=== PATIENT | female | born 1980 | race African-American/Black ===

== ENCOUNTER 2018-08-29 19:57 | Emergency (ER) | payer OTHER ==
[~2018-08-29] VITALS: Ht 175.3 cm; Wt 98.0 kg
[2018-08-29 20:04] VITALS: BP 147/75; PULSE 91; RESP 18; Ht 175.3 cm; Wt 98.0 kg
--- NOTE | 2018-08-29 21:09 | ERD ---
ER Documentation Chief Complaint Chief Complaint cp x 10 days, 22 weeks , cleared by ob HPI 38-year-old female who is 22 weeks and was cleared by OB is here for chest discomfort for the past 10 days. She states she has no chest pain but describes it as an intermittent "flickering" in her left chest that lasts a co uple moments and then resolves on its own. This is been going on every day for the last 10 days. No shortness of breath or palpitations. ROS All systems reviewed and are negative except as per history of present illness. Medications Home Meds No Active Prescriptions or Reported Meds Allergies Allergies: Coded Allergies: Penicillins (Verified Allergy, Mild, RASH, 12/24/12) Uncoded Allergies: PCN (Allergy, Mild, rash, 04/17/12) PMhx/Soc Medical and Surgical Hx: pt denies Medical Hx, pt denies Surgical Hx History of Surgery: No Anesthesia Reaction: No Hx Neurological Disorder: No Hx Respiratory Disorders: No Hx Cardiac Disorders: No Hx Psychiatric Problems: No Hx Miscellaneous Medical Probl: Yes (RIGHT OVARIAN CYST) Hx Alcohol Use: No Hx Substance Use: No Hx Tobacco Use: No Smoking Status: Never smoker FmHx Family History: No diabetes Physical Exam Vitals Vital Signs Date Temp Pulse Resp B/P (MAP) Pulse Ox O2 O2 Flow FiO2 Time Delivery Rate 08/29/18 98.5 91 18 147/75 98 20:04 (99) Physical Exam INITIAL VITAL SIGNS: Reviewed by me GENERAL: Awake, alert and oriented x 4, well appearing, nontoxic, speaking in full sentences. No acute distress HEAD: Atraumatic NECK: Supple. No masses. Full range of motion. No meningismus. No midline tenderness. RESPIRATORY: Clear to auscultation bilaterally. Symmetric chest wall rise. No wheezing or rales. No accessory muscle use. CV: Regular rate and rhythm. No murmurs, rubs, or gallops. ABDOMEN: Soft, non-distended. Nontender. Negative [place]. Negative McBurneys point tenderness. No CVA tenderness bilaterally. No guarding. No rebound. Result Diagram: 08/29/182047 Results 24 hrs Laboratory Tests Test 08/29/18 20:48 White Blood Count 10.9 10^3/ul Red Blood Count 3.97 10^6/ul Hemoglobin 11.8 g/dl Hematocrit 36.1 % Mean Corpuscular Volume 90.9 fl Mean Corpuscular Hemoglobin 29.7 pg Mean Corpuscular Hemoglobin Concent 32.7 g/dl Red Cell Distribution Width 13.2 % Platelet Count 282 10^3/UL Mean Platelet Volume 9.2 fl Immature Granulocytes % 1.500 % Neutrophils % 71.1 % Lymphocytes % 18.3 % Monocytes % 7.6 % Eosinophils % 1.1 % Basophils % 0.4 % Nucleated Red Blood Cells % 0.0 /100WBC Immature Granulocytes # 0.160 10^3/ul Neutrophils # 7.7 10^3/ul Lymphocytes # 2.0 10^3/ul Monocytes # 0.8 10^3/ul Eosinophils # 0.1 10^3/ul Basophils # 0.0 10^3/ul Nucleated Red Blood Cells # 0.0 10^3/ul Procedures/MDM Patient is here for chest discomfort that she has had for 10 days. She was already cleared by OB. CBC and chemistry panel ordered however patient decided she wanted to leave before results were given to her. She did not wish to sign the AMA form and just left. Departure Diagnosis: Primary Impression: Chest discomfort Condition: Stable DAYAMI MAURER PA-C Aug 29, 2018 21:09
== END 2018-08-29 21:23 | disposition left against medical advice (07) ==
LOC: FTE 19:57
DX: O99.89 Other specified diseases and conditions complicating pregnancy, childbirth and the puerperium (principal); R07.89 Other chest pain; Z3A.22 22 weeks gestation of pregnancy
CPT/HCPCS: 80053; 85025; 93005; Z7502

== ENCOUNTER 2018-09-15 13:32 | Inpatient (IN) | payer OTHER ==
[~2018-09-15] VITALS: Ht 175.3 cm; Wt 101.5 kg
[2018-09-15 13:53] VITALS: BP 144/85; PULSE 118; RESP 18; Ht 175.3 cm; Wt 101.5 kg
[2018-09-15] MEDS ORDERED: PREN1TAB71 PO (13:56)
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
[2018-09-15] MEDS ORDERED: ONDANSETRON 4 MG INJ IV PRN (15:00)
[2018-09-15] MEDS: LACTATED RINGER'S 1,000 ML IV SCH ×2 (15:03→22:19)
[2018-09-15] MEDS: ACETAMINOPHEN 325 MG TAB PO PRN ×2 (15:05→22:19)
[2018-09-16] MEDS ORDERED: PRENATAL VITAMIN PO SCH ×2 (09:00)
== END 2018-09-16 05:32 | disposition home or self-care (01) | DRG 833 ==
LOC: OBT 13:32 → L-D 13:32 → OBT 14:17 → L-D 14:54
PROVIDERS: ADMIT Obstetrics & Gynecology; ATTEND Obstetrics & Gynecology
DX: O26.892 Other specified pregnancy related conditions, second trimester (principal); Z3A.24 24 weeks gestation of pregnancy; R10.9 Unspecified abdominal pain
CPT/HCPCS: 76815; 76817; 80053; 81001; 82731; 84560; 85025; 85460; 85610; 85730; 86850; 86900; 86901; G0463; J7120

== ENCOUNTER 2018-10-02 14:46 | Outpatient (CLI) | payer OTHER ==
[~2018-10-02] VITALS: Ht 175.3 cm; Wt 102.0 kg
[~2018-10-02 14:46] MED LIST: PREN1TAB71 PO
[2018-10-02 14:55] VITALS: BP 141/87; PULSE 83; Ht 175.3 cm; Wt 102.0 kg
[2018-10-02] MEDS ORDERED: ACETAMINOPHEN 500 MG TAB PO STA (15:47)
[2018-10-02] MEDS ORDERED: AL HYDROX/MG HYDROX/SIMETH 30 ML CUP PO ONE (16:00)
[2018-10-02] MEDS ORDERED: FAMOTIDINE 20 MG TAB PO ONE (16:00)
--- NOTE | 2018-10-03 05:52 | TRIAGE ---
OB Triage Datetime Report Generated by CPN: 10/03/2018 05:51 Datetime: 10/02/2018 19:21 Stage of : OB Triage Datetime: 10/02/2018 18:59 Labor Evaluation Frequency: X1 Monitor Mode: External Duration (sec)2399: 60 Quality: Mild Pattern: Normal: <= 5 Contractions in 10 Minutes Resting Tone [place]: Relaxed Heart Rate FHR Baseline Rate: 135 Monitor Mode: External US Variability: Moderate 6-25 bpm Accelerations: 10X10 Decelerations: None Category: Category I Datetime: 10/02/2018 17:41 Monitor Mode: Palpation Pattern: Normal: <= 5 Contractions in 10 Minutes Resting Tone [place]: Relaxed Contraction Comments: no uc Heart Rate FHR Baseline Rate: 140 Monitor Mode: External US Variability: Moderate 6-25 bpm Decelerations: None Category: Category I Datetime: 10/02/2018 17:01 Duration (sec)2399: 20-30 Pattern: Normal: <= 5 Contractions in 10 Minutes Resting Tone [place]: Relaxed Contraction Comments: irritability Heart Rate FHR Baseline Rate: 145 Monitor Mode: External US Variability: Moderate 6-25 bpm Category: Category I Datetime: 10/02/2018 15:52 Duration (sec)2399: 20-30 Pattern: Normal: <= 5 Contractions in 10 Minutes Resting Tone [place]: Relaxed Contraction Comments: irritability Heart Rate FHR Baseline Rate: 145 Monitor Mode: External US Variability: Moderate 6-25 bpm Decelerations: None Category: Category I Datetime: 10/02/2018 15:23 EGA: 27.2 Datetime: 10/02/2018 14:58 Assessment Type: Triage Time of Arrival: 10/02/2018 14:43 EGA: 27.2 Arrived By: Ambulatory Arrived From: Home Chief Complaint: C/O decreased FM for 2 days, also c/o heartburn, deny epigastric pain, deny visual disturbance Movement: Decreased Contractions: Denies/Absent Rupture of Membranes: Denies Vaginal Bleeding: None Vaginal Discharge: Denies Recent Sexual Intercouse: Denies Abdominal Trauma: Not Applicable Patient Complaints: Other Time Provider Notified: 10/02/2018 15:38 Provider Notified: Initial Plan: nst, bpp Maternal Assessment Level of Consciousness: Fully Conscious DTR's/Clonus: DTRs 2+; No Clonus Headache: Denies Blurred Vision: No Respiratory Effort: Unlabored; Regular Rhythm; Equal Expansion Breath Sounds, Left: Clear and Equal Breath Sounds, Right: Clear and Equal Nausea/Vomiting: Denies RUQ Epigastric Pain: Denies Lower Extremities Edema: None Degree: None Upper Extremities Edema: None Degree: None Facial Edema: None Fall Risk Assessment History of Falling: (0) No Secondary Diagnosis: (0) No Ambulatory Aid: (0) Bedrest/Nurse Assist IV Therapy: (0) No Gait: (0) Normal/Bedrest/Immobile Mental Status: (0) Oriented to Own Ability Fall Score: 0 Fall Risk Score Definition: No Risk: No action required Datetime: 10/02/2018 14:49 Stage of : OB Triage Datetime: 09/16/2018 05:39 Stage of : Antepartum Datetime: 09/16/2018 05:25 Stage of : Antepartum Datetime: 09/16/2018 05:20 Stage of : Antepartum Datetime: 09/16/2018 05:10 Stage of : Antepartum Datetime: 09/16/2018 03:34 Stage of : Antepartum Maternal Assessment Level of Consciousness: Fully Conscious Labor Evaluation Frequency: none Monitor Mode: External Resting Tone [place]: Relaxed Heart Rate FHR Baseline Rate: 150 Monitor Mode: External US FHR Baseline Changes: No Baseline Change Variability: Moderate 6-25 bpm Accelerations: 10X10 Decelerations: Variable Pain Assessment Pain Scale: 1 Pain Presence: Intermittent Pain Type: Dull Pain Location: Back Pain Goal: 0 Pain Relief Measures: Pain Medication Given; Comfort Measures Datetime: 09/16/2018 02:34 Stage of : Antepartum Maternal Assessment Level of Consciousness: Fully Conscious Labor Evaluation Frequency: none Monitor Mode: External Resting Tone [place]: Relaxed Heart Rate FHR Baseline Rate: 150 Monitor Mode: External US FHR Baseline Changes: No Baseline Change Variability: Moderate 6-25 bpm Accelerations: 10X10 Decelerations: Variable Pain Assessment Pain Scale: 1 Pain Presence: Intermittent Pain Type: Dull Pain Location: Back Pain Goal: 0 Pain Relief Measures: Pain Medication Given; Comfort Measures Datetime: 09/16/2018 01:36 Stage of : Antepartum Maternal Assessment Level of Consciousness: Fully Conscious Labor Evaluation Frequency: none Monitor Mode: External Resting Tone [place]: Relaxed Heart Rate FHR Baseline Rate: 150 Monitor Mode: External US FHR Baseline Changes: No Baseline Change Variability: Moderate 6-25 bpm Accelerations: 10X10 Decelerations: Variable Pain Assessment Pain Scale: 1 Pain Presence: Intermittent Pain Type: Dull Pain Location: Back Pain Goal: 0 Pain Relief Measures: Pain Medication Given; Comfort Measures Datetime: 09/16/2018 00:34 Stage of : Antepartum Maternal Assessment Level of Consciousness: Fully Conscious Labor Evaluation Frequency: none Monitor Mode: External Resting Tone [place]: Relaxed Heart Rate FHR Baseline Rate: 150 Monitor Mode: External US FHR Baseline Changes: No Baseline Change Variability: Moderate 6-25 bpm Accelerations: 10X10 Decelerations: Variable Pain Assessment Pain Scale: 1 Pain Presence: Intermittent Pain Type: Dull Pain Location: Back Pain Goal: 0 Pain Relief Measures: Pain Medication Given; Comfort Measures Datetime: 09/15/2018 23:34 Stage of : Antepartum Temperature Route: Oral Labor Evaluation Frequency: none Monitor Mode: External Resting Tone [place]: Relaxed Heart Rate FHR Baseline Rate: 150 Monitor Mode: External US FHR Baseline Changes: No Baseline Change Variability: Moderate 6-25 bpm Accelerations: 10X10 Decelerations: Variable Pain Assessment Pain Scale: 2 Pain Presence: Intermittent Pain Type: Dull Pain Location: Back Pain Goal: 0 Pain Relief Measures: Pain Medication Given; Comfort Measures Datetime: 09/15/2018 23:13 Stage of : Antepartum Temperature Route: Oral Labor Evaluation Frequency: none Monitor Mode: External Resting Tone [place]: Relaxed Heart Rate FHR Baseline Rate: 150 Monitor Mode: External US FHR Baseline Changes: No Baseline Change Variability: Moderate 6-25 bpm Accelerations: 10X10 Decelerations: Variable Pain Assessment Pain Scale: 5 Pain Presence: Constant Pain Type: Dull Pain Location: Back Pain Goal: 0 Pain Relief Measures: Comfort Measures Datetime: 09/15/2018 22:41 Stage of : Antepartum Datetime: 09/15/2018 22:19 Stage of : Antepartum Datetime: 09/15/2018 22:11 Stage of : Antepartum Temperature Route: Oral Labor Evaluation Frequency: none Monitor Mode: External Resting Tone [place]: Relaxed Heart Rate FHR Baseline Rate: 150 Monitor Mode: External US FHR Baseline Changes: No Baseline Change Variability: Moderate 6-25 bpm Accelerations: 10X10 Decelerations: Variable Pain Assessment Pain Scale: 5 Pain Presence: Constant Pain Type: Dull Pain Location: Back (Annotations: Low Back) Pain Goal: 0 Pain Relief Measures: Comfort Measures Pain Assessment Comments: Discussed with pt. her taking Tylenol for mild-mod. pain. Pt really want s to go home. She agreed to stay until AM to make sure baby is okay and she is not contractiong and in stable condition as Dr Nam discussed with pt. Datetime: 09/15/2018 21:41 Stage of : Antepartum Datetime: 09/15/2018 21:22 Vaginal Exam Membrane Status: Intact Datetime: 09/15/2018 21:11 Stage of : Antepartum Datetime: 09/15/2018 21:00 Stage of : Antepartum Labor Evaluation Frequency: none Monitor Mode: External Resting Tone [place]: Relaxed Heart Rate FHR Baseline Rate: 150 Monitor Mode: External US FHR Baseline Changes: No Baseline Change Variability: Moderate 6-25 bpm Accelerations: 10X10 Decelerations: Variable Datetime: 09/15/2018 20:41 Stage of : Antepartum Datetime: 09/15/2018 20:33 Stage of : Antepartum Assessment Type: Ongoing Assessment Maternal Assessment Level of Consciousness: Fully Conscious DTR's/Clonus: DTRs 2+ Headache: Denies; Occipital Blurred Vision: No Respiratory Effort: Unlabored; Regular Rhythm; Equal Expansion Breath Sounds, Left: Clear and Equal Breath Sounds, Right: Clear and Equal Nausea/Vomiting: Denies RUQ Epigastric Pain: Denies Facial Edema: None Fall Risk Assessment History of Falling: (0) No Secondary Diagnosis: (0) No Ambulatory Aid: (0) Bedrest/Nurse Assist IV Therapy: (0) No Gait: (0) Normal/Bedrest/Immobile Mental Status: (0) Oriented to Own Ability Fall Score: 0 Fall Risk Score Definition: No Risk: No action required Datetime: 09/15/2018 20:11 Stage of : Antepartum Temperature Route: Oral Pain Assessment Pain Scale: 0 Pain Presence: None/Denies Pain Goal: 0 Datetime: 09/15/2018 20:00 Stage of : Antepartum Labor Evaluation Frequency: none Monitor Mode: External Resting Tone [place]: Relaxed Heart Rate FHR Baseline Rate: 150 Monitor Mode: External US FHR Baseline Changes: No Baseline Change Variability: Moderate 6-25 bpm Accelerations: 10X10 Decelerations: None Datetime: 09/15/2018 19:56 Stage of : Antepartum Assessment Type: Ongoing Assessment Maternal Assessment Level of Consciousness: Fully Conscious DTR's/Clonus: DTRs 2+; No Clonus Headache: Denies Blurred Vision: No Respiratory Effort: Unlabored; Regular Rhythm; Equal Expansion Breath Sounds, Left: Clear and Equal Breath Sounds, Right: Clear and Equal Nausea/Vomiting: Denies RUQ Epigastric Pain: Denies Lower Extremities Edema: None Degree: None Upper Extremities Edema: None Degree: None Facial Edema: None Fall Risk Assessment History of Falling: (0) No Secondary Diagnosis: (0) No Ambulatory Aid: (0) Bedrest/Nurse Assist Gait: (0) Normal/Bedrest/Immobile Mental Status: (0) Oriented to Own Ability Datetime: 09/15/2018 19:51 Stage of : Antepartum Temperature Route: Oral Pain Assessment Pain Scale: 0 Pain Presence: None/Denies Pain Goal: 0 Datetime: 09/15/2018 19:41 Stage of : Antepartum Datetime: 09/15/2018 19:19 Stage of : Antepartum Datetime: 09/15/2018 18:41 Labor Evaluation Frequency: 0 Monitor Mode: External Heart Rate FHR Baseline Rate: 150 Monitor Mode: External US FHR Baseline Changes: No Baseline Change Variability: Moderate 6-25 bpm Accelerations: 10X10 Decelerations: None Category: Category I Pain Presence: None/Denies Datetime: 09/15/2018 16:57 Labor Evaluation Frequency: 0 Monitor Mode: External Heart Rate FHR Baseline Rate: 145 Monitor Mode: External US FHR Baseline Changes: No Baseline Change Variability: Moderate 6-25 bpm Accelerations: 15X15 Decelerations: None Category: Category I Pain Presence: None/Denies Datetime: 09/15/2018 15:05 Pain Presence: Intermittent Pain Type: Ache Pain Location: Back Pain Relief Measures: Pain Medication Given Datetime: 09/15/2018 14:40 Stage of : Antepartum Assessment Type: Admission Assessment Vaginal Bleeding: None Maternal Assessment Level of Consciousness: Fully Conscious DTR's/Clonus: DTRs 2+; No Clonus Headache: Denies Blurred Vision: No Respiratory Effort: Unlabored; Regular Rhythm; Equal Expansion Breath Sounds, Left: Clear and Equal Breath Sounds, Right: Clear and Equal Nausea/Vomiting: Denies RUQ Epigastric Pain: Denies Facial Edema: None Fall Risk Assessment History of Falling: (0) No Secondary Diagnosis: (0) No Ambulatory Aid: (0) Bedrest/Nurse Assist IV Therapy: (0) No Gait: (0) Normal/Bedrest/Immobile Mental Status: (0) Oriented to Own Ability Fall Score: 0 Fall Risk Score Definition: No Risk: No action required Pain Assessment Pain Scale: 6 Pain Presence: Intermittent Pain Type: Ache Pain Location: Back Datetime: 09/15/2018 14:38 Stage of : OB Triage Datetime: 09/15/2018 13:59 Fall Score: 0 Fall Risk Score Definition: No Risk: No action required Datetime: 09/15/2018 13:57 Stage of : OB Triage EGA: 24.6 Labor Evaluation Frequency: irreg Monitor Mode: Palpation Duration (sec)0099: 40-50 Quality: Mild Pattern: Normal: <= 5 Contractions in 10 Minutes Resting Tone [place]: Relaxed Contraction Comments: palpates soft Monitor Mode: External US Datetime: 08/29/2018 18:06 Fall Score: 0 Fall Risk Score Definition: No Risk: No action required Datetime: 08/29/2018 17:57 EGA: 22.3
== END 2018-10-02 19:28 | disposition home or self-care (01) ==
LOC: OBT 14:46 → L-D 14:48 → OBT 19:28
PROVIDERS: ATTEND Obstetrics & Gynecology
DX: O36.8120 Decreased fetal movements, second trimester, not applicable or unspecified (principal); O60.02 Preterm labor without delivery, second trimester; Z3A.27 27 weeks gestation of pregnancy
CPT/HCPCS: 76817; 76818; 80053; 81001; 84560; 85025; 85384; 85610; 85730; Z7500; Z7610; G0463

== ENCOUNTER 2018-10-09 02:50 | Outpatient (CLI) | payer OTHER ==
[~2018-10-09] VITALS: Ht 175.3 cm; Wt 103.0 kg
[2018-10-09 03:17] VITALS: BP 134/94; PULSE 100; RESP 18
[2018-10-09] MEDS ORDERED: CALC300T4 PO (03:19)
[2018-10-09] MEDS ORDERED: ACETAMINOPHEN 500 MG TAB PO ONE (04:49)
[2018-10-09] MEDS ORDERED: AL HYDROX/MG HYDROX/SIMETH 30 ML CUP PO ONE (05:00)
--- NOTE | 2018-10-09 07:41 | PREOPHP ---
DATE OF ADMISSION: 10/09/2018 HISTORY OF PRESENT ILLNESS: The patient is a 38-year-old 3, para 2, EDC 12/30/2018, intraute rine at 28 weeks and 2 days gestational age, presented to triage complaining of headaches, which mildly improved with Tylenol. The patient has a significant history of gestational hypertensio n and currently taking antihypertensive medications. Her care is taking place with Dr. Shantal wade. PAST MEDICAL HISTORY: Gestational hypertension. MEDICATIONS: vitamins. PAST SURGICAL HISTORY: None. OBSTETRIC HISTORY: x2 vaginal deliveries. GYNECOLOGIC HISTORY: 12, regular 3 to 4 days. She denies any sexually transmitted disease. She is sexually active with 1 partner. SOCIAL HISTORY: She denies any smoking, drugs or alcohol. FAMILY HISTORY: None. REVIEW OF SYSTEMS: All within normal except history of present illness. PHYSICAL EXAMINATION: HEENT: Within normal. LUNGS: CTA bilateral. CARDIOVASCULAR: S1, S2, regular rhythm. ABDOMEN: Gravid, nontender. Negative CVA tenderness, no epigastric tenderness. EXTREMITIES: Negative edema. No calf tenderness. PELVIC: Vaginal exam deferred. heart tracing category 1. [place]: No contractions. VITAL SIGNS: Blood pressure 134/94, pulse 100, respirations 18, temperature 97.8. ASSESSMENT AND PLAN: Intrauterine at 28 weeks and 2 days gestational age with gestational hypertension, on medication. Recommended for admission to rule out preeclampsia. However, the patie nt currently declines admission and desires to follow up with Dr. Patrick in the morning. Risk of preeclampsia given to the patient. Strict preeclamptic precautions given to the patient. The patien t will leave against medical advice. Dictated By: ANNY REEVES MD ME/NTS Conf#: [id number] DID#: [id number] CC: ANYN REEVES MD;*EndCC*
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
== END 2018-10-09 07:13 | disposition left against medical advice (07) ==
LOC: L-D 02:50 → OBT 02:50
PROVIDERS: ATTEND Obstetrics & Gynecology
DX: O13.2 Gestational [pregnancy-induced] hypertension without significant proteinuria, second trimester (principal); O09.522 Supervision of elderly multigravida, second trimester; Z3A.28 28 weeks gestation of pregnancy; Z88.0 Allergy status to penicillin
CPT/HCPCS: 76818; 80053; 81001; 84560; 85025; 85610; 85730; Z7610; 36415; G0463

== ENCOUNTER 2018-10-16 18:08 | Outpatient (CLI) | payer OTHER ==
[~2018-10-16] VITALS: Ht 180.3 cm; Wt 102.9 kg
[~2018-10-16 18:08] MED LIST changes: +CALC300T4 PO
[2018-10-16 18:24] VITALS: Ht 180.3 cm; Wt 102.9 kg
[2018-10-16] MEDS ORDERED: ACETAMINOPHEN 500 MG TAB PO STA (20:18)
--- NOTE | 2018-10-16 23:48 | PN ---
Triage Information Date/Time 10/16/18 Reason for visit: DFM Weeks of Gestation 29w2d /Para Diabetes: none Hypertention: induced Additional information back pain for few days Objective normotensive Heart Rate: 150's Heart Rate Comments CAT I Contractions: None Exam CVA neg for tenderness Results/Medications Results 24 hrs Laboratory Tests Test 10/16/18 19:20 Urine Color YELLOW Urine Clarity SLIGHTLY CLOUDY A Urine pH 6.0 Urine Specific [place] 1.025 Urine Ketones TRACE A Urine Nitrite NEGATIVE Urine Bilirubin NEGATIVE Urine Urobilinogen 1+ H Urine Leukocyte Esterase 2+ H Urine Microscopic RBC 4 Urine Microscopic WBC 4 Urine Squamous Epithelial Cells FEW Urine Bacteria FEW A Urine Hemoglobin NEGATIVE Urine Glucose NEGATIVE Urine Total Protein NEGATIVE Medications tylenol 1000mg Imaging Results BPP 02/26 EDGAR 21.1 EFW 1846gm Disposition: Discharge Assessment/Plan A IUp 29w2d DFM GHTN back pain resolved P discharge home f/u at her OB ANSHU JIMENEZ MD Oct 16, 2018 23:48
== END 2018-10-16 21:45 | disposition home or self-care (01) ==
LOC: OBT 18:08 → L-D 18:09 → OBT 21:45
PROVIDERS: ATTEND Obstetrics & Gynecology
DX: O36.8130 Decreased fetal movements, third trimester, not applicable or unspecified (principal); Z3A.29 29 weeks gestation of pregnancy
CPT/HCPCS: 76815; 76818; 81001; 87086; Z7610; G0463

== ENCOUNTER 2018-10-29 13:54 | Outpatient (CLI) | payer OTHER ==
[~2018-10-29] VITALS: Ht 175.3 cm; Wt 101.9 kg
[2018-10-29 14:49] VITALS: Ht 175.3 cm; Wt 101.9 kg
[2018-10-29 14:52] VITALS: BP 126/78; PULSE 94; RESP 20
[2018-10-29] MEDS ORDERED: LIDOCAINE/MYLANTA 40 ML BTL PO ONE (16:00)
[2018-10-29] MEDS ORDERED: ACETAMINOPHEN 325 MG TAB PO PRN (16:00)
--- NOTE | 2018-11-12 22:24 | QN ---
Documentation Comment Late entry note. Patient seen on 10/29/2017 38 years old -0-1-2 [facility] later uterine at 31 weeks and 1 day gestational diabetes A1 and gestational hypertension presents for antepartum testing. She states good movement. She denies nausea, vomiting, shortness of breath, chest pain, headache, visual changes, vaginal bleeding or LOF. -FHR: No sign of metabolic acidosis- Category I -Contractions: None -Ultrasound performed: Normal EDGAR, BPP 8 out of 8 -Symptoms and sign of labor, preeclampsia, kick count discussed with patient, she voiced understanding. All of her questions answered. -Patient was discharged home in stable condition with the appropriate discharge instructions provided. I would like patient to have close follow-up with her primary physician or outpatient clinic in 1-2 days or return to triage for worsening symptoms or any other urgent concerns. OTTONIEL RICHTER Nov 12, 2018 22:24
== END 2018-10-29 17:40 | disposition home or self-care (01) ==
LOC: L-D 13:54 → OBT 13:54 → L-D 14:04 → OBT 17:40
PROVIDERS: ATTEND Obstetrics & Gynecology
DX: O24.419 Gestational diabetes mellitus in pregnancy, unspecified control (principal); O13.3 Gestational [pregnancy-induced] hypertension without significant proteinuria, third trimester; O09.523 Supervision of elderly multigravida, third trimester; Z3A.31 31 weeks gestation of pregnancy
CPT/HCPCS: 76818; 80053; 81001; 84560; 85025; 85384; 85610; 85730; Z7500; Z7610; G0463

== ENCOUNTER 2018-11-07 13:33 | Outpatient (CLI) | payer OTHER ==
[~2018-11-07] VITALS: Ht 175.3 cm; Wt 101.7 kg
[2018-11-07 13:51] VITALS: BP 130/77; PULSE 100; Ht 175.3 cm; Wt 101.7 kg
[2018-11-07] MEDS ORDERED: LABE100T7 PO (13:53)
[2018-11-07] MEDS ORDERED: CEPH500C PO (13:54)
--- NOTE | 2018-11-10 00:28 | PN ---
Triage Information Date/Time late entry for service rendered on 11/07/18 Reason for visit: NST and EDGAR Weeks of Gestation 32w3d /Para A1 Diabetes: gestational Hypertention: none, induced Additional information A2DM Objective Vital Signs Date Temp Pulse Resp B/P (MAP) Pulse Ox O2 O2 Flow FiO2 Time Delivery Rate 11/07/18 97.7 100 130/77 13:51 (94) Heart Rate: 150's Heart Rate Comments CAT I tracing Contractions: None Results/Medications Imaging Results EDGAR 13.9 BPP Disposition: Discharge Assessment/Plan A IUP 32w3d GDM GHTN P biweekly antepartum test ANSHU JIMENEZ MD Nov 10, 2018 00:28
== END 2018-11-07 15:00 | disposition home or self-care (01) ==
LOC: OBT 13:33 → L-D 13:33 → OBT 15:00
PROVIDERS: ATTEND Obstetrics & Gynecology
DX: O24.419 Gestational diabetes mellitus in pregnancy, unspecified control (principal); O13.3 Gestational [pregnancy-induced] hypertension without significant proteinuria, third trimester; O09.523 Supervision of elderly multigravida, third trimester; Z3A.32 32 weeks gestation of pregnancy
CPT/HCPCS: G0463

== ENCOUNTER 2018-12-17 21:47 | Outpatient (CLI) | payer OTHER ==
[~2018-12-17] VITALS: Ht 172.7 cm; Wt 102.1 kg
[~2018-12-17 21:47] MED LIST changes: +CEPH500C PO; +LABE100T7 PO
--- NOTE | 2018-12-17 22:16 | NSTRPT ---
NST Information Datetime Report Generated by CPN: 12/17/2018 22:15 Datetime: 12/12/2018 13:15 NST Information EGA: 37.3 Test Number: 11 Time on Monitor: 12/12/2018 13:32 Time off Monitor: 12/12/2018 13:54 NST Duration (Min): 22 Reason for NST: Diabetes Mellitus; Other Reason for NST Other: A2DM, Advanced Maternal Age Test and Monitor Explained: Monitor Explained; Test Explained; Verbalized Understanding Pulse: 91 Resp: 18 SBP: 122 DBP: 76 Test Evaluation NST Interventions: None Patient States Movement: Present Contraction Frequency: irritability/15-30/mild/pain level 0 FHR Baseline : 135 Variability: Moderate 6-25bpm Accelerations: 15X15 Decelerations: None FHR Category: Category I NST Results: Reactive Comments: pt to u/s britney 15.7 cm cephalic FBS 95 Electronically Signed By E-Signature: with User ID: [id number] Datetime: 12/09/2018 13:04 NST Information EGA: 37.0 NST Duration (Min): 25 Datetime: 12/05/2018 13:15 NST Information EGA: 36.3 NST Duration (Min): 28 Datetime: 12/02/2018 13:05 NST Information EGA: 36.0 NST Duration (Min): 31 Datetime: 11/25/2018 10:20 NST Information EGA: 35.0 NST Duration (Min): 25 Datetime: 11/21/2018 13:23 NST Information EGA: 34.3 NST Duration (Min): 29 Datetime: 11/18/2018 13:06 NST Information EGA: 34.0 NST Duration (Min): 20 Datetime: 11/14/2018 14:00 NST Information EGA: 33.3 NST Duration (Min): 31 Datetime: 11/11/2018 11:50 NST Information EGA: 33.0 NST Duration (Min): 29 Datetime: 11/07/2018 10:31 NST Information EGA: 32.3 NST Duration (Min): 51 Datetime: 11/04/2018 10:57 NST Information EGA: 32.0 NST Duration (Min): 28
[2018-12-17 22:18] VITALS: Ht 172.7 cm; Wt 102.1 kg
[2018-12-17 22:19] VITALS: BP 134/84; PULSE 106; RESP 17
[2018-12-18] MEDS ORDERED: FAMOTIDINE 20 MG TAB PO ONE (00:30)
[2018-12-18] MEDS ORDERED: MAGNESIUM HYDROXIDE 30ML CUP PO ONE (00:30)
--- NOTE | 2018-12-18 07:00 | HP ---
Date/Time of Note Date/Time of Note DATE: 12/18/18 TIME: 06:54 OB - History Hx of Present Free Text/Dictation Late entry note for exam done for December 17, 2018 : 5 Para: 2 Other Concerns: 38-year-old G5, P2 with IUP at 38 weeks and 1 day with care with Dr. Patrick presented with complaint of constant back pain 4 out of 10. Patient's records were not available. Per patient had a history of chronic hypertension and GDM. She is currently on labetalol 100 mg p.o. twice daily as well as metformin 500 mg p.o. twice daily. Patient reports has been followed up by perinatology clinic in [place]. No records are available. Patient reports she was told she is a candidate for induction and was told by her clinic that she will be scheduled for induction in 2 days. Patient denies any headache, blurred vision, epigastric pain or right upper quadrant pain. She denies any leaking of fluid, vaginal bleeding or decreased movement. She was noted to be 2 cm dilated/50% effaced -2 intact. Contractions were irregular. Blood pressures in the range of 130s over 80s. Past Family/Social History * Past Medical, Surgical, Family and Obstetric Histories reviewed from chart. OB Admission Exam Vital Signs Vital Signs Vital Signs Date Temp Pulse Resp B/P (MAP) Pulse Ox O2 O2 Flow FiO2 Time Delivery Rate 12/17/18 98.0 106 17 134/84 Room Air 22:19 (101) Physical Exam HEENT: WNL Heart: Rhythm Normal Lungs: Clear Abdomen: WNL Extremities: Normal Cervical Dilatation: 2cm Effacement: 50% Station: -2 Membranes: Intact Heart Rate: 120's Accelerations: Accelerations Present Decelerations: Variable Decelerations Varibility: Moderate Contractions on Admission: 6-10 Minutes Apart Intensity: Mild Last 72 hourBlood Glucose ROCEDURE: US biophysical profile. CLINICAL INDICATION: Pain. well-being. TECHNIQUE: Multiple sonographic images of the uterus were obtained. The images were reviewed on a PACS workstation. COMPARISON: US PELVIS 10/29/2018 FINDINGS: There is a single live intrauterine gestation. heart rate is 139 beats per minute. The position is cephalic. The placenta is anterior, grade 1. The EDGAR is 12.7 cm. Breathing Movement: 2 Gross Body Movement: 2 Tone: 2 Qualitative Amniotic Fluid Volume: 2 TOTAL: 8 IMPRESSION: 1. Single viable intrauterine gestation. 2. Biophysical profile = 8/8. 3. EDGAR = 12.7 cm. OB Assessment/Plan Other Assessment: IUP at 38 weeks and 1 day Low back pain. Cannot rule out early labor. Chronic hypertension, on labetalol 100 mg p.o. twice daily Currently no evidence of superimposed preeclampsia Blood pressure during monitoring while the patient was in triage within normal range in 130s over 80s. Patient is asymptomatic. GDM, A2 on metformin Patient was told the plan by perinatology clinic to be delivered and induced between 38 to 39 weeks I discussed with the patient admission to labor and delivery Plan to obtain all her records in a.m. when the clinic is open Attempted to contact [facility] for records. No records were available there Discussed with the patient after reviewing her records the plan would be likely to induction Patient declined admission and desires to sign AMA I strongly encouraged patient to be admitted to the hospital with above plan. I discussed with the patient risk of leaving against AMA including risk of complications of not limited to mom as well as to the baby and risk of significant remarkable for outcome including but not limited to versus versus maternal longer short term morbidity or mortality Patient verbalized understanding. All questions were answered to patient with satisfaction. She decided to leave AMA despite of above counseling She was advised to return to the clinic next day. This discussion was done in presence of RN, JOSE MANUEL Dickson MD December 18, 2018 07:00
[2018-12-18] MEDS ORDERED: METF-849 PO (11:41)
== END 2018-12-18 01:27 | disposition left against medical advice (07) ==
LOC: OBT 21:47 → L-D 21:48 → OBT 12-18 01:27
PROVIDERS: ATTEND Obstetrics & Gynecology
DX: O26.893 Other specified pregnancy related conditions, third trimester (principal); M54.5 Low back pain; O16.3 Unspecified maternal hypertension, third trimester; O24.415 Gestational diabetes mellitus in pregnancy, controlled by oral hypoglycemic drugs; O09.523 Supervision of elderly multigravida, third trimester; Z3A.38 38 weeks gestation of pregnancy
CPT/HCPCS: 76818; 81001; Z7500; Z7610; G0463

== ENCOUNTER 2018-12-18 11:30 | Inpatient (IN) | payer OTHER ==
[~2018-12-18] VITALS: Ht 172.7 cm; Wt 101.6 kg
[2018-12-18 11:37] VITALS: BMI 34.0
[2018-12-18 11:38] VITALS: BP 127/82; PULSE 108; RESP 18
[2018-12-18] MEDS ORDERED: METF-849 PO (11:41)
--- NOTE | 2018-12-18 15:49 | HP ---
Date/Time of Note Date/Time of Note DATE: 12/18/18 TIME: 15:38 OB - History Hx of Present Free Text/Dictation Patient today presented with complaint of decreased movement since last night when she signed AMA and left the hospital. Estimated Due Date: Dec 30, 2018 : 5 Para: 3 Care: Limited Care Other Concerns: 38-year-old G5, P3 with IUP at 38 weeks and 2 days with care with Dr. Hiram Patrick and history of hypertension currently on labetalol 100 mg p.o. twice daily as well as gestational diabetes on medication presented here to the hospital today after she left AMA last night. Patient presented with complaint of decreased movement since last night. She reports baby was not moving much since last night that is significantly decreased. Antepartum course was complicated by hypertension currently on labetalol 100 mg p.o. twice daily as well as gestational diabetes on meds. records obtained from clinic as well as from [facility] where she had her OB ultrasound for growth scan yesterday. Patient noted to have increased AC more than 97 percentile. It was recommended by perinatologist to deliver between 38 to 39 weeks. Patient was seen last night in triage. Records were not available at that time. She was encouraged to stay in the hospital on 2 morning to obtain the records however she signed AMA. Now today she presents with decreased movement. labs obtained and reviewed. GBS negative. Patient denies any headache, blurred vision, epigastric pain or right upper quadrant pain. She denies any leaking of fluid, vaginal bleeding. Past Family/Social History * Past Medical, Surgical, Family and Obstetric Histories reviewed from chart. Blood Type: O+ Rubella: immune RPR/VDRL: Negative GBS Status: Positive HBsAG: Negative OB Admission Exam Vital Signs Vital Signs Vital Signs Date Temp Pulse Resp B/P (MAP) Pulse Ox O2 O2 Flow FiO2 Time Delivery Rate 12/18/18 98.6 108 18 127/82 Room Air 11:38 (97) Physical Exam HEENT: WNL Lungs: Clear Abdomen: WNL Extremities: Normal Reflexes: Normal Cervical Dilatation: 1cm Effacement: 50% Station: -3 Membranes: Intact Amniotic Fluid: Clear Heart Rate: 130's Accelerations: Accelerations Present Decelerations: No Decelerations Varibility: Moderate Contractions on Admission: >10 Minutes Apart Intensity: Mild OB Assessment/Plan Other Assessment: BP at 38 weeks and 2 days PIH, well controlled with meds GDM, A2. on metformin Decreased movement. Increased AC more than 97 percentile Recommended by perinatologist delivery between 38 to 39 weeks Patient presented with decreased movement. I discussed with the patient and induction. Induction modes and pros and cons and risk and benefit discussed with patient in detail Induction with Cytotec discussed with the patient. All questions were answered to patient with satisfaction. Patient verbalized understanding and agreed to proceed I also discussed the patient risk of shoulder dystocia due to increased AC Increased risk of additional maneuver to deliver the babies shoulder in case of shoulder dystocia as well as risk of long or short-term complications including musculoskeletal or neural damage to the fetus in case of shoulder dystocia discussed with patient Patient verbalized understanding. All questions were answered. Proceed with estimated weight prior to start induction GBS positive. History of hives with penicillin. No anaphylaxis No sensitivity available Will start on cefazolin 2 g IV slow injection. If no reaction continue with also cefazolin 1 g every 8 hours JOSE MANUEL ESPINOZA MD December 18, 2018 15:48
[2018-12-18 15:55] VITALS: Ht 172.7 cm; Wt 101.6 kg
[2018-12-18] MEDS ORDERED: OXYTOCIN 30 UNITS/LR 500 ML IV SCH ×2 (16:00)
[2018-12-18] MEDS ORDERED: BUTORPHANOL 2 MG INJ IV PRN ×2 (16:00)
[2018-12-18] MEDS ORDERED: OXYTOCIN 30 UNITS/LR 500 ML IV PRN (16:00)
[2018-12-18] MEDS ORDERED: IBUPROFEN 600 MG TAB PO PRN (16:00)
[2018-12-18] MEDS ORDERED: METHYLERGONOVINE 0.2 MG INJ IM PRN (16:00)
[2018-12-18] MEDS ORDERED: LIDOCAINE 1% (MPF) 30 ML INJ INJ PRN (16:00)
[2018-12-18] MEDS ORDERED: CEFAZOLIN 2 GM/50 ML (PMX) 50 ML IVPB ONE (16:00)
[2018-12-18] MEDS ORDERED: MISOPROSTOL 200 MCG TAB PR PRN (16:00)
[2018-12-18] MEDS ORDERED: CARBOPROST 250 MCG INJ IM PRN (16:00)
[2018-12-18] MEDS: MISOPROSTOL 50 MCG CAPSULE PO SCH ×2 (18:02→22:18)
[2018-12-18] MEDS: LACTATED RINGER'S 1,000 ML IV SCH (18:23)
[2018-12-18] MEDS ORDERED: LABETALOL 100 MG TAB PO SCH (20:30)
[2018-12-18] MEDS: LABETALOL 100 MG TAB PO SCH (20:44)
[2018-12-18] MEDS ORDERED: MAGNESIUM HYDROXIDE 30ML CUP PO SCH (23:00)
[2018-12-19] MEDS ORDERED: CEFAZOLIN 1 GM/50 ML (PMX) 50 ML IVPB SCH
[2018-12-19] MEDS: MISOPROSTOL 50 MCG CAPSULE PO SCH ×3 (02:25→09:00)
[2018-12-19] MEDS ORDERED: CEFAZOLIN 2 GM/50 ML (PMX) 50 ML IVPB ONE (07:33)
[2018-12-19] MEDS: LACTATED RINGER'S 1,000 ML IV SCH ×4 (07:41→14:21)
[2018-12-19] MEDS: LABETALOL 100 MG TAB PO SCH ×2 (08:18→20:47)
[2018-12-19] MEDS ORDERED: FENTAnyl 2MCG/ML-ROPIV 0.2% 100 ML ONE (10:41)
--- NOTE | 2018-12-19 11:03 | PREAC ---
Date/Time of Note Date/Time of Note DATE: 12/19/18 TIME: 11:01 Anesthesia Eval and Record Evaluation Time Pre-Procedure Interview DATE: 12/19/18 TIME: 11:01 Age 38 Sex female NPO: 8 hrs Preoperative diagnosis Labor Pain Planned procedure Labor Epidural Past Medical History Past Medical History: Includes Heme: Anemia : : (5), Para: (2), Gestational age: (38) Surgery & Anesthesia Issues No known issue Meds Anticoagulation: No Beta Michelle within 24 hr: No Reason Beta Michelle not given: Pt. not on B-Michelle Reported Medications Metformin* (Glucophage*) 500 Mg Tab, 500 MG PO WITH BREAKFAST, #30 TAB 12/18/18 Cephalexin* (Cephalexin*) 500 Mg Capsule, 500 MG PO Q6, #28 CAP 11/07/18 Labetalol Hcl* (Labetalol Hcl*) 100 Mg Tablet, 100 MG PO BID, TAB 11/07/18 Calcium Carbonate* (Tums X-Str) 300 Mg Tab.chew, 300 MG PO, TAB.CHEW 10/09/18 Vit No.130/Iron/FA ( Tablet) 1 Each Tablet, 1 EACH PO, TAB 09/15/18 Current Medications Lactated Ringer's 1,000 ml @ 125 mls/hr Q8H IV Last administered on 12/19/18at 07:58; Admin Dose 125 MLS/HR; Start 12/18/18 at 15:41 Butorphanol Tartrate (Stadol) 1 mg Q2H PRN IV .PAIN SCALE 1-5; Start 12/18/18 at 16:00 Butorphanol Tartrate (Stadol) 2 mg Q2H PRN IV .PAIN SCALE 6-10; Start 12/18/18 at 16:00 Lidocaine (Xylocaine 1% (Mpf)) 30 ml ONCE PRN INJ .EPISIOTOMY; Start 12/18/18 at 16:00 Oxytocin/Lactated Ringer's 500 ml @ 500 mls/hr ONCE POST IV ; Start 12/18/18 at 16:00 Oxytocin/Lactated Ringer's 500 ml @ 125 mls/hr POST IV ; Start 12/18/18 at 16:00 Ibuprofen (Motrin) 600 mg ONCE PRN PO .PAIN 1-5; Start 12/18/18 at 16:00 Oxytocin/Lactated Ringer's 500 ml @ 0 mls/hr ONCE PRN IV .VAGINAL BLEEDING; Start 12/18/18 at 16:00 Methylergonovine Maleate (Methergine) 0.2 mg ONCE PRN IM .VAGINAL BLEEDING; Start 12/18/18 at 16:00 Carboprost Tromethamine (Hemabate) 250 mcg ONCE PRN IM .VAGINAL BLEEDING; Start 12/18/18 at 16:00 Misoprostol (Cytotec) 1,000 mcg ONCE PRN ID .VAGINAL BLEEDING; Start 12/18/18 at 16:00 Misoprostol (Cytotec 50 Mcg Capsule) 50 mcg Q4 PO Last administered on 12/19/18at 02:25; Admin Dose 50 MCG; Start 12/18/18 at 17:00 Cefazolin Sodium 50 ml @ 100 mls/hr Q8 IVPB ; Start 12/19/18 at 00:00 Labetalol HCl (Normodyne) 50 mg BID PO Last administered on 12/19/18at 08:18; Admin Dose 50 MG; Start 12/18/18 at 20:30 Magnesium Hydroxide (Milk Of Mag) 30 ml BID PO Last administered on 12/18/18at 23:45; Admin Dose 30 ML; Start 12/18/18 at 23:00 Meds reviewed: Yes Allergies Coded Allergies: Penicillins (Verified Allergy, Mild, RASH, 10/16/18) Allergies Reviewed: Yes Labs/Studies Labs Reviewed: Reviewed by anesthesiologist Result Diagram: 12/18/18 1724 Laboratory Tests 12/18/18 17:24 Blood Bank Test 12/18/18 17:24 Antibody Screen NEGATIVE Blood Type O POSITIVE Rh Immune Globulin Candidate NO test: Positive Studies: ECG (n/a), CXR (n/a) Pre-procedure Exam Last vitals Vital Signs Date Temp Pulse Resp B/P (MAP) Pulse Ox O2 O2 Flow FiO2 Time Delivery Rate 12/18/18 98.6 108 18 127/82 Room Air 11:38 (97) Airway: Adequate mouth opening, Adequate thyromental dist Mallampati: Mallampati II Teeth: Normal Lung: Normal Heart: Normal ASA Physical Status ASA physical status: 2 Emergency: None Planned Anesthetic Neuraxial: Epidural Planned Pain Management Epidural Pre-operative Attestations Prior to commencing anesthesia and surgery, the patient was re-evaluated, there was verification of: *The patient's identity *The results of appropriate recent lab work and preoperative vital signs *The above evaluation not changing prior to induction *Anesthetic plan, risk benefits, alternative and complications discussed with patient/family; questions answered; patient/family understands, accepts and wishes to proceed. PATRICIO BURGOS MD December 19, 2018 11:03
--- NOTE | 2018-12-19 11:05 | PAC ---
Date/Time of Note Date/Time of Note DATE: 12/19/18 TIME: 11:04 Post-Anesthesia Notes Post-Anesthesia Note Last documented vital signs Vital Signs Date Temp Pulse Resp B/P (MAP) Pulse Ox O2 O2 Flow FiO2 Time Delivery Rate 12/19/18 98.6 108 18 127/82 97 Room Air 11:00 (97) Activity: WNL Respiratory function: WNL Cardiovascular function: WNL Mental status: Baseline Pain reasonably controlled: Yes Hydration appropriate: Yes Nausea/Vomiting absent: Yes PATRICIO BURGOS MD December 19, 2018 11:05
[2018-12-19] MEDS ORDERED: FENTAnyl 2MCG/ML-ROPIV 0.2% 100 ML BAG EPI SCH (11:30)
[2018-12-19] MEDS ORDERED: NALOXONE (0.4 MG/ML) INJ IV PRN (11:30)
[2018-12-19] MEDS ORDERED: LACTATED RINGER'S 1,000 ML IV PRN (11:35)
[2018-12-19] MEDS ORDERED: MINERAL OIL LIGHT 10 ML VIAL TOP ONE (14:00)
--- NOTE | 2018-12-19 19:41 | LDN ---
Date/Time of Note Date/Time of Note DATE: 12/19/18 TIME: 19:38 Delivery Summary of macrosomic male infant r/o uterine fibroid Weeks of Gestation 38w3d Placenta Delivered: Spontaneously, Intact & Complete Episiotomy: No Perineal laceration: 0 Anesthesia type: Epidural Estimated blood loss: 300 Sponge & Needle done & correct: Yes All needle counts correct: Yes Any foreign bodies felt in the: No Infant Delivery Information Sex Sex: male Apgars 1 Minute: 9 5 Minute: 9 Suctioning Nose & mouth suctioned at ginny: Yes Delee suction performed: Yes Umbilical Cord Umbilical cord with: 3 Vessels Cord presentations: no nuchal cord Cord Blood was obtained: Yes Mother & Baby Disposition Disposition Mom & Baby to Maternity; Good: Yes Mom transferred to: Other Baby to NICU: No () ANSHU JIMENEZ MD December 19, 2018 19:41
[2018-12-19 21:40] VITALS: BP 136/77; PULSE 97; RESP 20
[2018-12-19] MEDS ORDERED: WITCH HAZEL/GLYCERIN PAD PR PRN (22:30)
[2018-12-19] MEDS ORDERED: OXYCODONE/ASPIRIN (4.88/325) TAB PO PRN ×2 (22:30)
[2018-12-19] MEDS ORDERED: OXYTOCIN 30 UNITS/LR 500 ML IV PRN (22:30)
[2018-12-19] MEDS ORDERED: MISOPROSTOL 200 MCG TAB PR PRN (22:30)
[2018-12-19] MEDS ORDERED: CARBOPROST 250 MCG INJ IM PRN (22:30)
[2018-12-19] MEDS ORDERED: ZOLPIDEM 5 MG TAB PO PRN (22:30)
[2018-12-19] MEDS ORDERED: LANOLIN HPA 1 PKT TOP PRN (22:30)
[2018-12-19] MEDS ORDERED: BENZOCAINE 20% 56 ML SPRAY TOP PRN (22:30)
[2018-12-19] MEDS ORDERED: METHYLERGONOVINE 0.2 MG INJ IM PRN (22:30)
[2018-12-20 00:40] VITALS: BP 116/71; PULSE 82; RESP 18
[2018-12-20] MEDS: IBUPROFEN 600 MG TAB PO SCH ×4 (00:52→17:46)
[2018-12-20 04:30] VITALS: BP 118/71; PULSE 74; RESP 18
[2018-12-20] MEDS: SENNA/DOCUSATE NA (8.6MG/50MG) TAB PO SCH ×2 (08:27→21:36)
[2018-12-20 08:45] VITALS: BP 118/75; PULSE 72; RESP 18
--- NOTE | 2018-12-20 09:56 | QN ---
Documentation Comment PPD #1 s/p with GDM and HTN. Pt is OK, and tolerating a regular diet. Pt was told to keep taking her BP meds (Labetalol 50 BID) until her f/u appt with Dr Patrick but to stop her Metformin. The pt has had 2 episodes of chest pressure this AM at 6 AM and 8AM. It has resolved. Pt also reports a h/o GERD before and during the . Bleeding has diminished from last night. BP 118/75 O2 sat 99% T=98.2 Fundus firm. Lochia minimal. Ext NT, 1+ edema. WBC 10.9 Hgb 10.0 Plts 207K P: Discussed with pt her past history and her instructions re: post-delivery by her doctor. Pt instructed to not take her own supply of Labetalol but to let us give it to her. I will not give her the AM dose but will restart this PM. I don't think the BP is affecting chest pain but too low can be bad as well as too high. Pt understands. Pt will stay off the Metformin and will do a 2 hour GTT at a 6 week f/u. Will give pt Protonix while she is here to eliminate the possibility of acid reflux being responsible for her chest pain. Will get a 12 lead EKG. Pt understands the plan and all of her questions and concerns were answered. MAXIMO JACOME MD Dec 20, 2018 09:56
[2018-12-20] MEDS ORDERED: LABETALOL 100 MG TAB PO ONE (10:00)
[2018-12-20] MEDS ORDERED: PANTOPRAZOLE (EC) 40 MG TAB PO SCH (11:15)
[2018-12-20] MEDS: PANTOPRAZOLE (EC) 40 MG TAB PO SCH (11:50)
[2018-12-20 15:56] VITALS: BP 108/68; PULSE 72; RESP 18
[2018-12-20 20:00] VITALS: BP 120/73; PULSE 72; RESP 18
[2018-12-20] MEDS: LABETALOL 100 MG TAB PO SCH (21:36)
[2018-12-21 04:00] VITALS: BP 121/71; PULSE 66; RESP 18
[2018-12-21] MEDS: IBUPROFEN 600 MG TAB PO SCH ×3 (05:57→12:09)
[2018-12-21] MEDS: PANTOPRAZOLE (EC) 40 MG TAB PO SCH (05:58)
[2018-12-21] MEDS: SENNA/DOCUSATE NA (8.6MG/50MG) TAB PO SCH (08:38)
[2018-12-21] MEDS: LABETALOL 100 MG TAB PO SCH (08:41)
[2018-12-21] MEDS ORDERED: DIPHTH/TET/ACEL PERTUSS (ADULT) 0.5 ML VIAL IM* ONE (09:00)
[2018-12-21 09:25] VITALS: BP 147/90; PULSE 83; RESP 18
--- NOTE | 2018-12-21 14:41 | QN ---
Documentation Comment PPD#2 is astable afebrile tolerates diet No VB +BM+Voids VS stable Gen NAD Abd soft NT ND Genitalia No blood at perineum --->Discharge plan KARYN JAMES M.D. Dec 21, 2018 14:41
--- NOTE | 2018-12-21 14:42 | DS ---
Date/Time of Note Date/Time of Note DATE: 12/21/18 TIME: 14:42 Discharge Summary Admission/Discharge Info Admit Date/Time December 18, 2018 at 15:20 Discharge Date/Time 12/21/2018 Discharge Diagnosis Patient Condition: Good Hospital Course uneventful Home Meds Reported Medications Metformin* (Glucophage*) 500 Mg Tab, 500 MG PO WITH BREAKFAST, #30 TAB 12/18/18 Cephalexin* (Cephalexin*) 500 Mg Capsule, 500 MG PO Q6, #28 CAP 11/07/18 Labetalol Hcl* (Labetalol Hcl*) 100 Mg Tablet, 100 MG PO BID, TAB 11/07/18 Calcium Carbonate* (Tums X-Str) 300 Mg Tab.chew, 300 MG PO, TAB.CHEW 10/09/18 Vit No.130/Iron/FA ( Tablet) 1 Each Tablet, 1 EACH PO, TAB 09/15/18 Primary Care Provider Not On Staff Doctor KARYN JAMES M.D. Dec 21, 2018 14:42
--- NOTE | 2018-12-22 17:29 | RADRPT ---
Vent Rate: 75 bpm RR Interval: 800 msec UT Interval: 172 msec QRS Duration: 89 msec QT Interval: 358 msec QTC Interval: 400 msec P-R-T Mallory: 58 - -8 - 35 degrees Sinus rhythm...normal Electronically Signed By: Marquis Olson
--- NOTE | 2018-12-22 17:50 | DELSUM ---
Delivery Summary A-C Datetime Report Generated by CPN: 12/22/2018 17:50 DELIVERY PERSONNEL Public Health Specialist: Rui Osorioel MATERNAL INFORMATION Delivery Anesthesia: Epidural Medications in Delivery: LR 500ML PITOCIN 30 UNITS Delivery QBL (ml): 150 Placenta Cultured: No Other Maternal Complications: GDM, HTN, DFM LABOR SUMMARY EDC: 12/30/2018 00:00 No. Babies in Womb: 1 Attempted: No Labor Anesthesia: Epidural LABOR INFORMATION Reason for Induction: Other Reason for Induction- Other: GDM, HTN Onset of Labor: 12/19/2018 07:00 Complete Dilatation: 12/19/2018 18:04 Cervical Ripening Agents: Cytotec @ Oxytocin: Induction Group B Beta Strep: Positive Antibiotics # of Doses: 2 Antibiotics Time of Last Dose: 12/19/2018 14:29 Steroids Given: None Reason Steroids Not Administered: Not Applicable MEMBRANES Membranes Rupture Method: Spontaneous Rupture of Membranes: 12/19/2018 07:26 Length of Rupture (hr): 11.17 Amniotic Fluid Color: Clear Amniotic Fluid Amount: Large Amniotic Fluid Odor: Normal STAGES OF LABOR Stage 1 hr: 11 Stage 1 min: 4 Stage 2 hr: 0 Stage 2 min: 32 Stage 3 hr: 0 Stage 3 min: 2 Total Time in Labor hr: 11 Total Time in Labor min: 38 VAGINAL DELIVERY Episiotomy: None Laceration Extension: N/A Laceration Type: None Laceration Repair: Not Applicable Initial Vag Sponge Count: 10 Final Vag Sponge Count: 10 Initial Vag Sharps Count: 1 Final Vag Sharps Count: 1 Sponge Count Correct: Yes; Vaginal Sweep Performed Sharps Count Correct: Yes BABY A INFORMATION Infant Delivery Date/Time: 12/19/2018 18:36 Method of Delivery: Vaginal Born in Route : No : N/A Forceps: N/A Vacuum Extraction: N/A Shoulder Dystocia : N/A SHOULDER DYSTOCIA BABY A Delivery Date/Time: 12/19/2018 18:36 PRESENTATION/POSITION BABY A Presentation: Cephalic Cephalic Presentation: Vertex Vertex Position: Left Occipital Anterior Breech Presentation: N/A PLACENTA INFORMATION BABY A Placenta Delivery Time : 12/19/2018 18:38 Placenta Method of Delivery: Spontaneous Placenta Status: Delivered SCORES BABY A Heart Rate 1 min: >100 bpm Resp Effort 1 min: Good Cry Reflex Irritability 1 min: Cough/Sneeze/Pulls Away Muscle Tone 1 min: Active Motion Color 1 min: Body [place], Extremit Blue Resuscitation Effort 1 min: Tactile Stimulation SCORE 1 MIN: 9 Heart Rate 5 min: >100 bpm Resp Effort 5 min: Good Cry Reflex Irritability 5 min: Cough/Sneeze/Pulls Away Muscle Tone 5 min: Active Motion Color 5 min: Body [place], Extremit Blue Resuscitation Effort 5 min: Tactile Stimulation SCORE 5 MIN: 9 INFANT INFORMATION BABY A Gestational Age at Delivery: 38.3 Gestational Status: Early Term- 37- 38.6 Weeks Infant Outcome : Liveborn Condition : Stable Sex: Male IDENTIFICATION/MEDS BABY A ID Band Number: [id number] ID Band Location: Right Leg; Left Arm Sensor Applied: Yes Sensor Number: [id number] Sensor Location : Cord Clamp Vitamin K Given : Not Given Erythromycin Given: Not Given WEIGHT/LENGTH BABY A Birthweight (gm): 4100 Weight (lb): 9 Weight (oz): 1 Length (in): 21.00 Length (cm): 53.34 CORD INFORMATION BABY A No. Cord Vessels: 3 Nuchal Cord : N/A Nuchal Cord- Other: 0 True Knot: 0 Cord Blood Taken: N/A Banking/Donate Info: NO Suction: Mouth; Nose ASSESSMENT BABY A Infant Complications: Multiple Variable Decels
== END 2018-12-21 17:15 | disposition home or self-care (01) | DRG 807 ==
LOC: OBT 11:30 → L-D 11:35 → OBT 15:34 → L-D 17:06 → PP1 12-19 21:33
PROVIDERS: ADMIT Obstetrics & Gynecology; ATTEND Obstetrics & Gynecology
PROC: 10E0XZZ Delivery of Products of Conception, External Approach (ICD-10-PCS; principal; 2018-12-18)
DX: O36.8130 Decreased fetal movements, third trimester, not applicable or unspecified (principal); O13.4 Gestational [pregnancy-induced] hypertension without significant proteinuria, complicating childbirth; O24.425 Gestational diabetes mellitus in childbirth, controlled by oral hypoglycemic drugs; O36.63X0 Maternal care for excessive fetal growth, third trimester, not applicable or unspecified; O99.89 Other specified diseases and conditions complicating pregnancy, childbirth and the puerperium; R07.89 Other chest pain; Z37.0 Single live birth; Z3A.38 38 weeks gestation of pregnancy
CPT/HCPCS: 62322; 76815; 82962; 85025; 85610; 85730; 86592; 86850; 86900; 86901; 87340; 93005; 99464; G0463; J0690; J2590; J3010; J7120